=== PATIENT | female | born 1970 | race Hispanic/Latino ===

== ENCOUNTER 2017-07-11 20:31 | Emergency (ER) | payer SELFPAY ==
[~2017-07-11 20:31] MED LIST: Iopamidol 370 76% 100 ML VIAL ONE
[2017-07-11 20:49] LABS: #Monocytes 0.4 thou/uL (0.11-0.59); #Neutrophils 3.6 thou/uL (1.40-6.50); %Basophils 0.7 % (0.0-1.0); %Lymphocytes 19.8 % (21.0-51.0); %Monocytes 7.7 % (0.0-10.0); %Neutrophils 70.8 % (42.0-75.0); Hemoglobin 14.1 g/dL (12.0-16.0); Mean Corpuscular Hemoglobin 29.1 pg (27.0-31.0); Mean Corpuscular Volume 85.4 fl (81.0-99.0); Mean Platelet Volume 10.5 fL (7.4-10.4); Platelet Count 141 thou/uL (130-400); RBC Distribution Width 11.7 % (11.5-14.5); Red Blood Cell (RBC) Count 4.86 mill/uL (4.20-5.40)
[2017-07-11] MEDS ORDERED: Pantoprazole 40 MG VIAL ONE (21:06)
[2017-07-11 21:08] LABS: ALT (SGPT) 515 U/L (8-55); AST (SGOT) 609 U/L (5-34); Albumin 4.1 g/dL (3.5-5.0); Alkaline Phosphatase 157 U/L (40-150); Anion Gap 13 mmol/L (10-20); BUN (Urea Nitrogen) 16 mg/dL (7.0-18.7); Bilirubin, Total 0.8 mg/dL (0.2-1.2); Calc. Creatinine Clearance 0 mL/min (70-130); Calcium 9.4 mg/dL (7.8-10.44); Carbon Dioxide 26 mmol/L (22-29); Chloride 105 mmol/L (98-107); Estimated GFR-MDRD 77; Glucose 102 mg/dL (70-105); Potassium 3.7 mmol/L (3.5-5.1); Protein, Total 7.1 g/dL (6.0-8.3); Sodium 140 mmol/L (136-145)
[2017-07-11 21:10] LABS: CKMB 1.1 ng/mL (0-6.6); Troponin I Less than 0.010 ng/mL (< 0.028)
--- NOTE | 2017-07-11 21:21 | RAD ---
PORTABLE FRONTAL CHEST RADIOGRAPH 07/11/17 COMPARISON: 04/11/16 HISTORY: Chest pain. FINDINGS: There is no pneumothorax, pleural fluid, focal consolidation or alveolar edema. Heart and mediastinal contours are unremarkable. IMPRESSION: No acute findings. POS: [facility]
--- NOTE | 2017-07-11 22:38 | CT ---
CT OF THE ABDOMEN AND PELVIS 07/11/17 COMPARISON: None. HISTORY: Right upper quadrant pain. TECHNIQUE: Serial axial CT imaging at 5 mm intervals from lung bases through pubic symphysis with IV contrast. C oronal reformatted imaging obtained. FINDINGS: The lack of oral contrast limits assessment of the bowel. Cholecystectomy clips are present. There is a subpleural nodule in the right middle lobe measuring approximately 4 mm of doubtful clinic al significance. No free intraperitoneal air or fluid is seen. The hepatic parenchyma is hypodense suggesting steatosis. The spleen, pancreas, adrenal glands, and k idneys demonstrate no acute findings. There is a lesion within the medial aspect of the right renal m id pole, measuring 7-8 mm, too small to characterize. A tiny hypodensity is noted in the lower pole o f the left kidney, also too small to characterize. The colon demonstrates a normal noncontrast enhanced appearance. The appendix appears within normal l imits. There are areas of scattered fluid seen throughout multiple loops of small bowel, particularly in the left upper abdomen. There area a few mildly distended left upper quadrant small bowel loops with no differential dilation or mesenteric fat stranding. No small bowel wall thickening. The vascular struc tures appear patent. No lymphadenopathy noted in the abdomen or pelvis. The osseous structures demons trate no acute findings. IMPRESSION: Scattered fluid seen within numerous loops of small bowel with no evidence for small bowel obstructio n or free intraperitoneal air. This could represent enteritis in the proper clinical setting. No evid ence for appendicitis. POS: [facility]
[2017-07-12] MEDS ORDERED: Prochlorperazine 10 MG/2 ML VIAL ONE (00:01)
[2017-07-12 00:09] LABS: Troponin I Less than 0.010 ng/mL (< 0.028)
[2017-07-12 12:40] LABS: HBCM Index 0.08 S/CO (0-0.79); HBSAg Index 0.19 S/CO (0-0.99); Hep A IgM AB Non-Reactive (NonReactive); Hep A IgM S/CO 0.09 S/CO (0-0.79); Hep B Surf Ag Non-Reactive S/CO (NonReactive); Hep C IgG Ab Non-Reactive (NonReactive); Hep C Index 0.11 S/CO (0-0.79); Hepatitis B Core IGM Abs Non-Reactive (NonReactive)
== END 2017-07-12 00:20 | disposition home or self-care (01) ==
LOC: BURERS 20:31
DX: K21.9 Gastro-esophageal reflux disease without esophagitis (principal); F32.9 Major depressive disorder, single episode, unspecified
CPT/HCPCS: 36415; 71045; 74177; 80053; 80074; 82553; 84484; 85025; 85379; 93005; 96374; A4216; C9113; J0780

== ENCOUNTER 2019-02-21 14:46 | Outpatient (CLI) | payer BC ==
--- NOTE | 2019-02-21 16:50 | RAD ---
LEFT ANKLE THREE VIEWS: 02/21/19 No fracture was detected. The ankle joint appears intact. The articular surfaces are smooth. IMPRESSION: No acute findings. POS: [facility]
--- NOTE | 2019-02-21 16:52 | RAD ---
LEFT FOOT THREE VIEWS: 02/21/19 No fracture or periosteal reaction was seen. The bones and joints were unremarkable in appearance. IMPRESSION: No acute finding. POS: [facility]
== END 2019-02-21 14:47 | disposition home or self-care (01) ==
LOC: BURRAD 14:46
PROVIDERS: ATTEND Nurse Practitioner Family
DX: M25.572 Pain in left ankle and joints of left foot (principal)

== ENCOUNTER 2020-01-17 17:04 | Emergency (ER) | payer BC ==
[2020-01-17] MEDS ORDERED: Boostrix 0.5 ML (Tdap) VIAL ONE (17:54)
--- NOTE | 2020-01-17 18:37 | RAD ---
LEFT WRIST THREE VIEWS: 01/17/20 A comminuted fracture of the distal radius is present with anterior displacement of the fragments. Th ere is also fracture of the ulnar styloid process. The distance between the scaphoid and lunate is ab out 3 mm which is a bit wide. I cannot exclude a scapholunate dissociation. IMPRESSION: Displaced comminuted fracture of the distal radius. Ulnar styloid fracture. Possible scapholunate dis sociation. POS: [facility]
[2020-01-17] MEDS ORDERED: Fentanyl 100 MCG/2 ML VIAL ONE (18:45)
[2020-01-17] MEDS ORDERED: Midazolam HCl 2 mg/2 ml Vial ONE (18:46)
[2020-01-17] MEDS ORDERED: Lidocaine 2% PF 5 ML VIAL ONE (18:48)
[2020-01-17] MEDS ORDERED: Naloxone HCl 0.4 mg/ml Vial ONE (19:06)
--- NOTE | 2020-01-17 19:55 | RAD ---
LEFT WRIST TWO VIEWS: 01/17/20 Post reduction views show orthodox of alignment of many of the radial fragments. The displacement has been largely rectified. The ulnar styloid fracture is noted. On this one film, the scapholunate d istance seems normal. That might be looked at on future films. A splint has been applied. IMPRESSION: Successful reduction of distal radial fracture. POS: [facility]
== END 2020-01-17 19:58 | disposition home or self-care (01) ==
LOC: BURERS 17:04
DX: S52.502A Unspecified fracture of the lower end of left radius, initial encounter for closed fracture (principal); F32.9 Major depressive disorder, single episode, unspecified; V86.99XA Unspecified occupant of other special all-terrain or other off-road motor vehicle injured in nontraffic accident, initial encounter
CPT/HCPCS: 25605; 90471; 90715; 99152; 99153; J2001; J2250; J2310; J3010